=== PATIENT | male | born 1985 | race Caucasian/White ===

== ENCOUNTER 2021-08-09 19:51 | Emergency (ER) | payer BC ==
[2021-08-09] MEDS ORDERED: Acetaminophen/HYDROcodone 325-5 MG Tab PO ONE (21:15)
== END 2021-08-09 23:32 | disposition home or self-care (01) ==
LOC: JP.ED 19:51
DX: S76.112A Strain of left quadriceps muscle, fascia and tendon, initial encounter (principal); M70.52 Other bursitis of knee, left knee; W22.09XA Striking against other stationary object, initial encounter
CPT/HCPCS: 73700; 99283; 99284; A9270